=== PATIENT | female | born 1955 | race Caucasian/White ===

== ENCOUNTER → 2017-07-16 | Outpatient (CLI) | payer OTHER ==
[~2017-07-16] MED LIST: ACETAMINOPHEN-1 EAC1 PO; BACLOFEN 10MG T10 MG PO; FLEXERIL PO; IBUPROFEN 200200 M1 PO; NAPROSYN500 MG PO; NOVOLOG100 UNIT/1 SUBQ; PREMARIN0.3 MG PO; PROBIOTIC1 EAC1; RESTORIL15 MG PO; ROPINIROLE HCL2 MG PO; VITAMIN D1000 UNI1 PO; ZOCOR20 MG PO; ZOLOFT50 MG PO
== END ==
LOC: CAT 08:23
DX: Z13.6 Encounter for screening for cardiovascular disorders (principal)

== ENCOUNTER → 2017-12-24 | Outpatient (CLI) | payer BC ==
[~2017-12-24] MED LIST changes: +ACYCLOVIR 400400 MG PO; +ESTRADIOL 1 MG T1 M1 PO; +LEVAQUIN 500 M500 M1 PO; +LIPITOR 20 MG T20 M1 PO; +METOPROLOL SUCC25 M1 PO
== END ==
LOC: RAD 02:23
DX: Z12.31 Encounter for screening mammogram for malignant neoplasm of breast (principal)

== ENCOUNTER 2018-02-03 13:24 | Inpatient (IN) | payer BC ==
[2018-02-03] VITALS (13 sets, daily range): BP systolic 93–144; BP diastolic 40–79
[~2018-02-03] VITALS: Ht 162.6 cm; Wt 63.5 kg
--- NOTE | ~2018-02-03 | EKG ---
[address] [employer] [place] [address] ELECTROCARDIOGRAM REPORT Name: SHAMAR RUVALCABA Room #: 236-P ADM IN M.R.#: [id number] Admission: 02/03/18 Attend Phys: Donaldo Lopez MD Discharge: Date of : 51 Report #: [id number] THIS REPORT FOR: //name// [facility] Test Date: 2018-02-03 Test Time: 17:33:51 Pat Name: SHAMAR RUVALCABA Department: Room: 236 P Gender: F Home Supervisor: Verónica PARADA : 1955 Requested By: Donaldo Lopez Order Number: [id number] MD: Cristhian Santana Measurements Intervals [place] Rate: 107 P: 60 NE: 160 QRS: 75 QRSD: 95 T: -1 QT: 316 QTc: 422 Interpretive Statements Sinus tachycardia Nonspecific ST and T wave abnormality Compared to ECG 10/29/1996 20:25:00 Sinus rhythm has replaced atrial flutter Electronically Signed On 02-04-2018 8:00:04 FUEL MANAGER by Cristhian Santana [email or web address] <ELECTRONICALLY SIGNED> By: Cristhian Santana MD, [facility] 02/04/1800 1733 1733 Cristhian Santana MD, [facility] /EPI
--- NOTE | ~2018-02-03 | 2DMMODE ---
[facility] [address] [place] [address] 2 D/M-MODE ECHOCARDIOGRAM Name: JORDONSHAMAR BARR Room #: 236-P ADM IN M.R.#: [id number] Admission: 02/03/18 Attend Phys: Donaldo Lopez, Discharge: Date of : 51 Date of Service: 02/04/18 0953 Report #: [id number] THIS REPORT FOR: //name// APPROVED REPORT Study performed: 02/04/2018 08:57:48 EXAM: Comprehensive 2D, Doppler, and color-flow Echocardiogram Patient Location: ICU Room #: 236 Status: routine BSA: 1.66 HR: 81 bpm BP: 82/47 mmHg Other Information Study Quality: Fair Indications Diabetes Atrial Fibrillation 2D Dimensions RVDd: 32.52 mm LVEF(%): 73.57 (>50%) IVSd: 10.02 (7-11mm) LVOT Diam: 19.58 (18-24mm) LVDd: 42.51 mm PWd: 10.49 (7-11mm) Ascending Ao: 27.13 (22-36mm) LVDs: 24.57 (25-40mm) Aortic Root: 24.94 mm IVC: 19.00 mm [place]'s LVEF: 73.57 % Volumes Left Atrial Volume (Systole) Single Plane 4CH: 25.55 mL Single Plane 2CH: 39.68 mL LA ESV Index: 21.00 mL/m2 Aortic Valve AoV Peak José Miguel.: 1.61 m/s AO Peak Gr.: 10.42 mmHg LVOT Max P.76 mmHg LVOT Max V: 1.30 m/s TAJ Vmax: 2.42 cm2 Mitral Valve E/A Ratio: 1.7 MV Decel. Time: 207.81 ms [facility] [place] [address] 2 D/M-MODE ECHOCARDIOGRAM Name: JORDONSHAMAR SUE Room #: 236-P [facility] IN M.R.#: [id number] Admission: 02/03/18 Attend Phys: Donaldo Lopez, Discharge: Date of : 51 Date of Service: 02/04/18 0953 Report #: [id number] MV E Max José Miguel.: 1.05 m/s MV A José Miguel.: 0.63 m/s MV PHT: 60.27 ms IVRT: 55.36 ms Pulmonary Valve PV Peak José Miguel.: 0.91 m/s PV Peak Gr.: 3.34 mmHg Pulmonary Vein P Vein S: 0.51 m/s P Vein A: 0.24 m/s P Vein D: 0.39 m/s P Vein A Dur.: 96.9 msec P Vein S/D Ratio: 1.31 Left Ventricle The left ventricle is normal size. There is normal LV segmental wall motion. There is normal left ventricular wall thickness. The left ventricular systolic function is normal. The left ventricular ejection fraction is within the normal range. LVEF is 60-65%. Right Ventricle The right ventricle is normal size. The right ventricular systolic function is normal. Atria The left atrium size is normal. The right atrium size is normal. Aortic Valve The aortic valve is normal in structure. No aortic regurgitation is present. There is no aortic valvular stenosis. Mitral Valve The mitral valve is normal in structure. Trace mitral regurgitation. No evidence of mitral valve stenosis. Tricuspid Valve The tricuspid valve is normal in structure. There is no tricuspid valve regurgitation noted. Pulmonic Valve The pulmonary valve is normal in structure. There is no pulmonic valvular regurgitation. Great Vessels The aortic root is normal in size. IVC is normal in size and collapses >50% with inspiration. [facility] [address] [place] [address] 2 D/M-MODE ECHOCARDIOGRAM Name: SHAMAR RUVALCABA Room #: 236-P [facility] IN .R.#: [id number] Admission: 02/03/18 Attend Phys: Donaldo Lopez, Discharge: Date of : 51 Date of Service: 02/04/18 0953 Report #: [id number] Pericardium There is no pericardial effusion. <Conclusion> The left ventricle is normal size. There is normal left ventricular wall thickness. The left ventricular systolic function is normal. The right ventricle is normal size. The left atrium size is normal. The aortic valve is normal in structure. Trace mitral regurgitation. There is no pericardial effusion. <ELECTRONICALLY SIGNED> By: Burke Bashir MD 02/04/18952 2 2 Burke Bashir MD /INF
--- NOTE | ~2018-02-03 | EKG ---
[place] [address] [facility] [place] [address] ELECTROCARDIOGRAM REPORT Name: SHAMAR RUVALCABA Room #: 236-P ADM IN M.R.#: [id number] Admission: 02/03/18 Attend Phys: Donaldo Lopez MD Discharge: Date of : 51 Report #: [id number] THIS REPORT FOR: //name// [facility] ED Test Date: 2018-02-03 Test Time: 13:37:57 Pat Name: SHAMAR RUVALCABA Department: Room: 236 Gender: F Fur Buyer: AFSHAN : 1955 Requested By: Monique Claudio Order Number: [id number] MD: Cristhian Santana Measurements Intervals [place] Rate: 160 P: AR: QRS: 58 QRSD: 94 T: -75 QT: 263 QTc: 429 Interpretive Statements Atrial flutter with rapid ventricular response Borderline low voltage, extremity leads Repolarization abnormality, prob rate related Compared to ECG 10/29/1996 20:25:00 Atrial flutter has replaced sinus rhythm Electronically Signed On 02-04-2018 7:55:20 NATIONAL SALES REPRESENTATIVE by Cristhian Santana [email or web address] <ELECTRONICALLY SIGNED> By: Cristhian Santana MD, [facility] 02/04/18 0755 1337 1337 Cristhian Santana MD, [facility] /EPI
[~2018-02-03 13:24] MED LIST changes: -ACYCLOVIR 400400 MG PO; -ESTRADIOL 1 MG T1 M1 PO; -LEVAQUIN 500 M500 M1 PO; -LIPITOR 20 MG T20 M1 PO; -METOPROLOL SUCC25 M1 PO
[2018-02-03 13:57] LABS: HEMATOCRIT 47.1 % (37.0-47.0); HEMOGLOBIN 14.4 gm/dL (12.0-15.0); MCHC 30.7 g/dL (28.0-37.0); PLATELET COUNT 441 thou/uL (150-400); RBC 4.66 mil/uL (4.20-5.00); RDW 14.8 % (10.5-14.5); WBC 26.3 thou/uL (4.0-11.0)
[2018-02-03 14:10] LABS: BUN 41 mg/dL (7-18); CALCIUM 9.6 mg/dL (8.5-10.1); CHLORIDE 94 mmol/L (98-107); CREATININE 1.7 mg/dL (0.6-1.0); SODIUM 130 mmol/L (136-145)
[2018-02-03 14:12] LABS: ANION GAP 27 mmol/L (7-16)
[2018-02-03 14:14] LABS: CO2 9 mmol/L (21-32); GLUCOSE 637 mg/dL (74-106); POTASSIUM 6.8 mmol/L (3.5-5.1)
[2018-02-03 14:16] LABS: DIRECT BILIRUBIN < 0.1 mg/dL (<0.1-0.3); LIPASE 65 U/L (73-393); SGOT 23 U/L (15-37); SGPT 27 U/L (30-65); TOTAL BILIRUBIN 0.5 mg/dL (<0.1-1.0); TOTAL PROTEIN 8.3 g/dL (6.4-8.2); TROPONIN-I < 0.04 ng/mL (<0.06)
[2018-02-03 14:23] LABS: ABSOLUTE NEUTROPHILS 22.9 thou/uL (1.4-8.2); MYELOCYTES 1 %
[2018-02-03 14:24] LABS: PLATELET ESTIMATE NORMAL
[2018-02-03 14:46] LABS: URINE BILIRUBIN NEGATIVE (Negative); URINE BLOOD 1+ (Negative); URINE CLARITY CLEAR; URINE COLOR YELLOW; URINE GLUCOSE-RANDOM* 3+ (Negative); URINE KETONES 3+ (Negative); URINE LEUKOCYTES-REFLEX NEGATIVE (Negative); URINE NITRITE-REFLEX NEGATIVE (Negative); URINE PROTEIN (DIPSTICK) NEGATIVE (Negative); URINE SPECIFIC GRAVITY 1.025 (1.005-1.035); URINE UROBILINOGEN 0.2 E.U./dl (0.2-1.0)
[2018-02-03 15:16] LABS: BACTERIA-REFLEX None Seen /HPF (None Seen); CASTS None Seen /LPF (None Seen); CRYSTALS None Seen /LPF (None Seen); SQUAMOUS 0-3 Few /LPF (0-3); URINE RBC None Seen /HPF (0-2); URINE WBC-REFLEX 0-5 Rare /HPF (0-5)
[2018-02-03] MEDS ORDERED: LIPITOR 20 MG T20 M1 PO (15:17)
[2018-02-03] MEDS ORDERED: ESTRADIOL 1 MG T1 M1 PO (15:18)
[2018-02-03 15:48] LABS: BE(vivo) -25.6 mmol/L (-2 to +3); HCO3 4.8 mmol/L (22.0-26.0); PCO2 21.2 mmHg (35.0-45.0); PO2 97.7 mmHg (80.0-100.0); pH 6.975 (7.360-7.450); sO2 93.1 % (92.0-98.0)
[2018-02-03 18:00] LABS: CALCIUM 8.6 mg/dL (8.5-10.1); CREATININE 1.3 mg/dL (0.6-1.0)
[2018-02-03 18:01] LABS: POTASSIUM 5.4 mmol/L (3.5-5.1)
[2018-02-03 18:10] LABS: MAGNESIUM 2.3 mg/dL (1.8-2.4); PHOSPHORUS 5.3 mg/dL (2.5-4.9)
[2018-02-03 18:11] LABS: ALBUMIN 3.6 g/dL (3.4-5.0)
[2018-02-03 21:59] LABS: CALCIUM 7.2 mg/dL (8.5-10.1); CREATININE 1.2 mg/dL (0.6-1.0)
[2018-02-03 22:00] LABS: POTASSIUM 3.7 mmol/L (3.5-5.1)
[2018-02-04] VITALS (15 sets, daily range): BP systolic 87–119; BP diastolic 37–54
[2018-02-04 01:05] LABS: ALBUMIN 2.7 g/dL (3.4-5.0); CREATININE 1.1 mg/dL (0.6-1.0); PHOSPHORUS 1.1 mg/dL (2.5-4.9); POTASSIUM 3.8 mmol/L (3.5-5.1)
[2018-02-04 05:18] LABS: HEMATOCRIT 32.3 % (37.0-47.0); MCH 30.9 pg (26.0-34.0); MCHC 33.1 g/dL (28.0-37.0); RBC 3.47 mil/uL (4.20-5.00); RDW 13.8 % (10.5-14.5); WBC 20.3 thou/uL (4.0-11.0)
[2018-02-04 05:38] LABS: ALBUMIN 2.7 g/dL (3.4-5.0); CALCIUM 6.9 mg/dL (8.5-10.1); CREATININE 0.9 mg/dL (0.6-1.0); MAGNESIUM 2.4 mg/dL (1.8-2.4); PHOSPHORUS 1.1 mg/dL (2.5-4.9); POTASSIUM 4.1 mmol/L (3.5-5.1); TOTAL BILIRUBIN 0.3 mg/dL (<0.1-1.0); TOTAL PROTEIN 5.5 g/dL (6.4-8.2)
[2018-02-04 05:41] LABS: HEMOGLOBIN 10.7 gm/dL (12.0-15.0); MCV 93.2 fL (80.0-100.0)
[2018-02-04 08:08] LABS: ABSOLUTE NEUTROPHILS 18.1 thou/uL (1.4-8.2)
[2018-02-04 08:10] LABS: ANISOCYTOSIS 1+; PLATELET COUNT 280 thou/uL (150-400)
[2018-02-04 09:50] LABS: ALBUMIN 2.7 g/dL (3.4-5.0); CALCIUM 7.1 mg/dL (8.5-10.1); CREATININE 0.8 mg/dL (0.6-1.0); PHOSPHORUS 1.1 mg/dL (2.5-4.9); POTASSIUM 3.7 mmol/L (3.5-5.1)
[2018-02-04 13:57] LABS: ALBUMIN 2.6 g/dL (3.4-5.0); CALCIUM 6.7 mg/dL (8.5-10.1); CREATININE 0.8 mg/dL (0.6-1.0); PHOSPHORUS 2.6 mg/dL (2.5-4.9); POTASSIUM 3.8 mmol/L (3.5-5.1)
[2018-02-04 18:07] LABS: ALBUMIN 2.6 g/dL (3.4-5.0); CALCIUM 6.7 mg/dL (8.5-10.1); CREATININE 0.7 mg/dL (0.6-1.0); PHOSPHORUS 2.6 mg/dL (2.5-4.9); POTASSIUM 3.6 mmol/L (3.5-5.1)
[2018-02-05] VITALS (18 sets, daily range): BP systolic 90–127; BP diastolic 39–62
[2018-02-05 01:55] LABS: URINE BILIRUBIN NEGATIVE (Negative); URINE BLOOD 1+ (Negative); URINE CLARITY CLEAR; URINE COLOR YELLOW; URINE GLUCOSE-RANDOM* NEGATIVE (Negative); URINE KETONES NEGATIVE (Negative); URINE LEUKOCYTES-REFLEX NEGATIVE (Negative); URINE NITRITE-REFLEX NEGATIVE (Negative); URINE PROTEIN (DIPSTICK) NEGATIVE (Negative); URINE SPECIFIC GRAVITY 1.015 (1.005-1.035); URINE UROBILINOGEN 0.2 E.U./dl (0.2-1.0)
[2018-02-05 02:05] LABS: BACTERIA-REFLEX 1-9 Few /HPF (None Seen); CASTS None Seen /LPF (None Seen); CRYSTALS None Seen /LPF (None Seen); MUCUS None Seen strn/LPF (None Seen); SQUAMOUS 0-3 Few /LPF (0-3); URINE RBC 0-2 Rare /HPF (0-2); URINE WBC-REFLEX 0-5 Rare /HPF (0-5)
[2018-02-05 05:41] LABS: HEMATOCRIT 33.3 % (37.0-47.0); HEMOGLOBIN 10.9 gm/dL (12.0-15.0); MCH 30.5 pg (26.0-34.0); MCHC 32.8 g/dL (28.0-37.0); MCV 93.1 fL (80.0-100.0); RBC 3.58 mil/uL (4.20-5.00); RDW 13.7 % (10.5-14.5); WBC 12.6 thou/uL (4.0-11.0)
[2018-02-05 05:47] LABS: ALBUMIN 2.8 g/dL (3.4-5.0); CALCIUM 7.5 mg/dL (8.5-10.1); CREATININE 0.6 mg/dL (0.6-1.0); PHOSPHORUS 2.1 mg/dL (2.5-4.9); POTASSIUM 3.5 mmol/L (3.5-5.1)
[2018-02-06 00:32] VITALS: BP 125/63
[2018-02-06 04:12] VITALS: BP 129/55
[2018-02-06 06:30] LABS: ALBUMIN 2.7 g/dL (3.4-5.0); CALCIUM 7.8 mg/dL (8.5-10.1); CREATININE 0.7 mg/dL (0.6-1.0); POTASSIUM 3.9 mmol/L (3.5-5.1); TOTAL BILIRUBIN 0.4 mg/dL (<0.1-1.0); TOTAL PROTEIN 5.8 g/dL (6.4-8.2)
[2018-02-06 07:40] VITALS: BP 120/64
[2018-02-06 10:53] LABS: HEMATOCRIT 33.2 % (37.0-47.0); HEMOGLOBIN 11.1 gm/dL (12.0-15.0); MCH 30.9 pg (26.0-34.0); MCHC 33.4 g/dL (28.0-37.0); MCV 92.4 fL (80.0-100.0); RBC 3.59 mil/uL (4.20-5.00); RDW 13.9 % (10.5-14.5); WBC 11.5 thou/uL (4.0-11.0)
[2018-02-06 15:45] VITALS: BP 118/65
[2018-02-06 20:18] VITALS: BP 122/68
[2018-02-07 04:14] VITALS: BP 115/61
[2018-02-07 07:53] VITALS: BP 119/55
[2018-02-07] MEDS ORDERED: ACYCLOVIR 400400 MG PO (08:05)
[2018-02-07] MEDS ORDERED: METOPROLOL SUCC25 M1 PO (08:05)
[2018-02-07] MEDS ORDERED: LEVAQUIN 500 M500 M1 PO (08:05)
[2018-02-07 09:58] VITALS: BP 119/55
[2018-02-07 10:52] VITALS: BP 119/55
== END 2018-02-07 10:52 | disposition home or self-care (01) | DRG 871 ==
LOC: ER 13:24 → ICU 14:38 → EROBS 14:38 → ICU 16:21 → 4S 02-05 19:34 → ENTRNSPT 02-07 10:36 → EDTRNSPTSTS 02-07 10:37 → 4S 02-07 10:52
PROVIDERS: Emergency Medicine; Family Medicine
PROC: B24BZZ4 Ultrasonography of Heart with Aorta, Transesophageal (ICD-10-PCS; principal; 2018-02-04)
PROC: 02HV33Z Insertion of Infusion Device into Superior Vena Cava, Percutaneous Approach (ICD-10-PCS; principal; 2018-02-04)
DX: A41.9 Sepsis, unspecified organism (principal); E11.10 Type 2 diabetes mellitus with ketoacidosis without coma; I48.92 Unspecified atrial flutter; N17.9 Acute kidney failure, unspecified; E87.1 Hypo-osmolality and hyponatremia; B00.2 Herpesviral gingivostomatitis and pharyngotonsillitis; E11.65 Type 2 diabetes mellitus with hyperglycemia; E78.00 Pure hypercholesterolemia, unspecified; G25.81 Restless legs syndrome; E05.90 Thyrotoxicosis, unspecified without thyrotoxic crisis or storm; E87.5 Hyperkalemia; I48.91 Unspecified atrial fibrillation; Z87.891 Personal history of nicotine dependence; Z90.710 Acquired absence of both cervix and uterus; Z90.49 Acquired absence of other specified parts of digestive tract; Z79.4 Long term (current) use of insulin; Z91.14 Patient's other noncompliance with medication regimen; Z98.891 History of uterine scar from previous surgery; Z79.899 Other long term (current) drug therapy; Z88.1 Allergy status to other antibiotic agents; Z88.5 Allergy status to narcotic agent; Z88.8 Allergy status to other drugs, medicaments and biological substances; Z82.49 Family history of ischemic heart disease and other diseases of the circulatory system
CPT/HCPCS: 10078; 10102; 27000

== ENCOUNTER → 2018-11-23 | Outpatient (CLI) | payer OTHER ==
[~2018-11-23] MED LIST changes: +ACYCLOVIR 400400 MG PO; +ESTRADIOL 1 MG T1 M1 PO; +LEVAQUIN 500 M500 M1 PO; +LIPITOR 20 MG T20 M1 PO; +METOPROLOL SUCC25 M1 PO
== END ==
LOC: RAD 12:17
DX: M41.86 Other forms of scoliosis, lumbar region (principal); M51.34 Other intervertebral disc degeneration, thoracic region; M50.30 Other cervical disc degeneration, unspecified cervical region

== ENCOUNTER 2018-11-30 09:01 | Emergency (ER) | payer OTHER ==
[~2018-11-30] VITALS: Ht 162.6 cm; Wt 62.1 kg
[2018-11-30 09:45] LABS: URINE CLARITY SL HAZY; URINE COLOR YELLOW; URINE GLUCOSE-RANDOM* 2+ (Negative); URINE KETONES TRACE (Negative); URINE PROTEIN (DIPSTICK) NEGATIVE (Negative); URINE SPECIFIC GRAVITY 1.025 (1.005-1.035)
[2018-11-30 09:46] LABS: URINE BILIRUBIN NEGATIVE (Negative); URINE BLOOD 2+ (Negative); URINE LEUKOCYTES-REFLEX NEGATIVE (Negative); URINE NITRITE-REFLEX NEGATIVE (Negative); URINE UROBILINOGEN 0.2 E.U./dl (0.2-1.0)
[2018-11-30 09:54] LABS: CASTS None Seen /LPF (None Seen); MUCUS 0-3 Light strn/LPF (None Seen); SQUAMOUS 4-10 Moderate /LPF (0-3)
[2018-11-30 09:55] LABS: BACTERIA-REFLEX None Seen /HPF (None Seen); CRYSTALS None Seen /LPF (None Seen); URINE RBC 0-2 Rare /HPF (0-2); URINE WBC-REFLEX 0-5 Rare /HPF (0-5)
[2018-11-30 09:59] LABS: ABSOLUTE NEUTROPHILS 6.8 thou/uL (1.4-8.2); EOSINOPHILS 2.8 % (0.0-3.0); HEMATOCRIT 43.2 % (37.0-47.0); HEMOGLOBIN 14.2 gm/dL (12.0-15.0); MCH 30.3 pg (26.0-34.0); MCHC 32.9 g/dL (28.0-37.0); MONOCYTES 10.6 % (1.0-8.0); PLATELET COUNT 376 thou/uL (150-400); POLYS 73.6 % (36.0-66.0); RDW 13.9 % (10.5-14.5); WBC 9.2 thou/uL (4.0-11.0)
[2018-11-30 10:12] LABS: ANION GAP 8 mmol/L (7-16); BUN 15 mg/dL (7-18); CALCIUM 9.3 mg/dL (8.5-10.1); CHLORIDE 99 mmol/L (98-107); CO2 29 mmol/L (21-32); CREATININE 0.9 mg/dL (0.6-1.0); GLUCOSE 269 mg/dL (74-106); POTASSIUM 4.6 mmol/L (3.5-5.1); SODIUM 136 mmol/L (136-145)
[2018-11-30 10:22] LABS: ALBUMIN 3.7 g/dL (3.4-5.0); LIPASE 100 U/L (73-393); SGOT 14 U/L (15-37); SGPT 18 U/L (30-65); TOTAL BILIRUBIN 0.6 mg/dL (<0.1-1.0); TOTAL PROTEIN 8.2 g/dL (6.4-8.2); TROPONIN-I <0.06 ng/mL (<0.06)
[2018-11-30] MEDS ORDERED: FLAGYL500 M1 PO (11:04)
[2018-11-30] MEDS ORDERED: ZOFRAN ODT4 MG PO (11:04)
[2018-11-30] MEDS ORDERED: CIPRO500 MG PO (11:04)
[2018-11-30] MEDS ORDERED: NORCO 5-325 TA1 EACH PO (11:04)
[2018-11-30 13:05] VITALS: BP 123/48
--- NOTE | 2018-11-30 13:20 | EKG ---
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: RENU : 1955 Requested By: Helga Groves Order Number: [id number] MD: Chidi Nunez Measurements Intervals [place] Rate: 71 P: 69 LA: 161 QRS: 58 QRSD: 98 T: 35 QT: 381 QTc: 414 Interpretive Statements Sinus rhythm Borderline low voltage, extremity leads Compared to ECG 02/03/2018 17:33:51 Sinus tachycardia no longer present ST (T wave) deviation no longer present Electronically Signed On 11-30-2018 13:19:49 DIRECTOR OF PURCHASING by Chidi Nunez [email or web address] <ELECTRONICALLY SIGNED> By: Chidi Nunez MD 11/30/18 1319 3 3 Chidi Nunez MD /[place]OMA
== END 2018-11-30 12:00 | disposition home or self-care (01) ==
LOC: ER 09:01
PROVIDERS: Nurse Practitioner Family
DX: K57.32 Diverticulitis of large intestine without perforation or abscess without bleeding (principal); E11.9 Type 2 diabetes mellitus without complications; Z90.710 Acquired absence of both cervix and uterus; Z87.891 Personal history of nicotine dependence; Z88.1 Allergy status to other antibiotic agents; Z88.5 Allergy status to narcotic agent

== ENCOUNTER → 2019-02-10 | Outpatient (CLI) | payer OTHER ==
[~2019-02-10] VITALS: Ht 162.6 cm; Wt 65.8 kg
[~2019-02-10] MED LIST changes: +CIPRO500 MG PO; +FLAGYL500 M1 PO; +NORCO 5-325 TA1 EACH PO; +PHENERGAN12.5 M2 RECTAL; +PREDNISONE 10 M10 MG PO; +PROPRANOLOL 1010 MG PO; +ZANAFLEX4 MG PO; +ZOFRAN ODT4 MG PO
[2019-02-10 09:18] VITALS: BP 146/68
--- NOTE | 2019-02-10 10:22 | NUR ---
Pain Clinic Assessment: 1. History of Osteoarthritis: SCOLIOSIS History of Rheumatoid Arthritis: 2. Height: 5 ft. 4 in. 162.6 cm. Weight: 145.0 lb. oz. 65.772 kg. Patient's BMI: 24.9 3. Vital Signs: BP: 146/68 Pulse: 72 Resp: 18 Temp: 02 Sat: 97 ECG Mon: 4. Pain Intensity: 9 5. Fall Risk: Dizziness: Y Needs help standing or walking: Y Fallen in the last 3 months: N Fall risk comments: WALKER AT TIMES 6. Patient on Blood Thinner: None 7. History of Hypertension: Y 8. Opioid Therapy greater than 6 weeks: N Opiate Contract Signed: 9. Risk Assessment Tool Provided: 10. Functional Assessment Tool: 64/ 11. Recreational Drug Use: Never Drug Type: Tobacco Use: Former Smoker Tobacco Type: Amount or Packs/day: How Many Years: Alcohol Use: Yes Frequency: Weekly Quant: 4
== END | disposition home or self-care (01) ==
LOC: PAIN 06:48
DX: M54.16 Radiculopathy, lumbar region (principal); G89.29 Other chronic pain; E11.9 Type 2 diabetes mellitus without complications; I48.92 Unspecified atrial flutter; E05.90 Thyrotoxicosis, unspecified without thyrotoxic crisis or storm; Z79.4 Long term (current) use of insulin; Z90.710 Acquired absence of both cervix and uterus; Z98.890 Other specified postprocedural states; Z87.19 Personal history of other diseases of the digestive system; Z79.899 Other long term (current) drug therapy; Z79.01 Long term (current) use of anticoagulants; Z88.0 Allergy status to penicillin; Z88.8 Allergy status to other drugs, medicaments and biological substances

== ENCOUNTER 2019-03-15 16:52 | Inpatient (IN) | payer OTHER ==
[~2019-03-15] VITALS: Ht 162.6 cm; Wt 64.6 kg
[2019-03-15 17:07] VITALS: BP 142/75
[2019-03-15 17:23] LABS: URINE BLOOD 2+ (Negative); URINE CLARITY CLEAR; URINE COLOR YELLOW; URINE GLUCOSE-RANDOM* TRACE (Negative); URINE KETONES NEGATIVE (Negative); URINE LEUKOCYTES-REFLEX NEGATIVE (Negative); URINE NITRITE-REFLEX NEGATIVE (Negative); URINE PROTEIN (DIPSTICK) TRACE (Negative); URINE SPECIFIC GRAVITY <= 1.005 (1.005-1.035); URINE UROBILINOGEN 0.2 E.U./dl (0.2-1.0)
[2019-03-15 17:23] LABS: ABSOLUTE NEUTROPHILS 4.1 thou/uL (1.4-8.2); BASOPHILS 1.2 % (0.0-2.0); EOSINOPHILS 3.2 % (0.0-3.0); HEMATOCRIT 39.8 % (37.0-47.0); HEMOGLOBIN 13.4 gm/dL (12.0-15.0); LYMPHOCYTES 20.5 % (24.0-44.0); MCHC 33.7 g/dL (28.0-37.0); MONOCYTES 9.4 % (1.0-8.0); PLATELET COUNT 492 thou/uL (150-400); POLYS 65.7 % (36.0-66.0); RBC 4.48 mil/uL (4.20-5.00); RDW 13.2 % (10.5-14.5); WBC 6.2 thou/uL (4.0-11.0)
[2019-03-15 17:25] LABS: ICTOTEST (BILI CONFIRMATORY) Negative (Negative); URINE BILIRUBIN NEGATIVE (Negative)
[2019-03-15 17:33] LABS: CALCIUM 9.9 mg/dL (8.5-10.1); CREATININE 0.8 mg/dL (0.6-1.0); POTASSIUM 3.7 mmol/L (3.5-5.1)
[2019-03-15 17:37] LABS: BACTERIA-REFLEX 1-9 Few /HPF (None Seen); CASTS None Seen /LPF (None Seen); CRYSTALS None Seen /LPF (None Seen); SQUAMOUS 4-10 Moderate /LPF (0-3); URINE RBC 3-10 Few /HPF (0-2); URINE WBC-REFLEX 0-5 Rare /HPF (0-5)
[2019-03-15 17:39] LABS: ALBUMIN 3.4 g/dL (3.4-5.0); TOTAL BILIRUBIN 0.2 mg/dL (<0.1-1.0); TOTAL PROTEIN 7.9 g/dL (6.4-8.2)
[2019-03-15 20:15] VITALS: BP 126/97
[2019-03-15 21:01] VITALS: BP 128/54
[2019-03-15 21:30] VITALS: BP 120/54
--- NOTE | 2019-03-16 02:12 | NUR ---
Pt came up to unit from ER approx 2100. Alert and oriented x4. Dr Lopez notified that pt is here and new orders noted. Prn anti-emetic med and pain med administered. IVF started. Pt NPO. Pt has insulin pump. Admission completed. Pt states she would like to sleep and rest. Call light within reach. Will continue to monitor.
[2019-03-16 03:30] VITALS: BP 131/57
[2019-03-16 07:22] VITALS: BP 124/65
--- NOTE | 2019-03-16 13:12 | NUR ---
ASSESSMENT-PT LIVES AT HOME WITH HER . SHE IS INDEPENDENT OF ADLS AND AMBULATION. SPOUSE ABLE TO ASSIST AT HOME WELL. THEY SHARE THE HOUSEHOLD DUTIES. PT VOICE NO CONCERNS RELATED TO DC. FOLLOWING TO ASSIST WITH DC PLANNING.
[2019-03-16 16:21] VITALS: BP 122/55
--- NOTE | 2019-03-16 17:51 | NUR ---
PT ASSESSED AT START OF SHIFT. ABD PAIN GONE. HAD SEVERE NAUSEA THIS AM UNRELIEVED BY ZOFRA SO CHANGED TO COMPAZINE AND HAD RELIEF. HEADACHE THIS AM AND GONE NOW. GI CONSULT. PT STARTED ON CLEARS AND TOLERATING WELL. NO FUTHER NAUSEA.
[2019-03-16 20:45] VITALS: BP 145/49
--- NOTE | 2019-03-17 05:23 | NUR ---
ASSUMED CARE AT 1900, ASSESSMENT COMPLETED. PT REPORTS ABD PAIN IS MOSTLY GONE. C/O NAUSEA ONCE IN THE EVENING, GIVEN COMPAZINE FOR RELIEF, AND HAS DENIED NAUSEA THE REST OF THE NIGHT. IS ABLE TO TAKE CLEAR LIQUIDS, BUT REPORTS FEELING FULL WITH MUCH INTAKE SO SHE IS PRIMARILY TAKING ICE CHIPS ONLY. UP AD ALVARADO IN THE ROOM, STEADY ON FEET, IV FLUIDS INFUSING. NO OTHER CONCERNS, LIKELY D/C TODAY, WILL CONTINUE TO MONITOR.
[2019-03-17 05:30] VITALS: BP 114/57
[2019-03-17 08:20] VITALS: BP 124/58
--- NOTE | 2019-03-17 11:05 | NUR ---
ASSUMED CARE OF PT AT 0700. ASSESSMENT CHARTED. A&O,X4. DENIES ABD PAIN OR NAUSEA. TOLERATING CLEARS DIET, ADVANCED TO SOFT/BLAND DIET PER GI FOR LUNCH TODAY. ACHS, TYPE 1 DM. SKIN INTACT. AT BEDSIDE. C/O RESTLESS LEG SYNDROME NUMBNESS/TINGLING, PAIN MEDS GIVEN ORDERED. POSSIBLE D/C HOME LATER TODAY. WILL CONTINUE TO MONITOR.
[2019-03-17 15:45] VITALS: BP 106/66
[2019-03-17] MEDS ORDERED: AUGMENTIN 875-1 EACH PO (16:28)
[2019-03-17] MEDS ORDERED: FLAGYL500 M1 PO (16:29)
[2019-03-17 16:33] VITALS: BP 106/66
== END 2019-03-17 17:58 | disposition home or self-care (01) | DRG 392 ==
LOC: ER 16:52 → EROBS 17:40 → 4E 17:40
PROVIDERS: Emergency Medicine; ADMIT Family Medicine
DX: K57.20 Diverticulitis of large intestine with perforation and abscess without bleeding (principal); R19.00 Intra-abdominal and pelvic swelling, mass and lump, unspecified site; K42.9 Umbilical hernia without obstruction or gangrene; F17.210 Nicotine dependence, cigarettes, uncomplicated; E78.5 Hyperlipidemia, unspecified; E11.9 Type 2 diabetes mellitus without complications; Z90.710 Acquired absence of both cervix and uterus; Z88.6 Allergy status to analgesic agent; Z88.1 Allergy status to other antibiotic agents; Z88.8 Allergy status to other drugs, medicaments and biological substances; Z82.49 Family history of ischemic heart disease and other diseases of the circulatory system; Z86.010 Personal history of colon polyps
CPT/HCPCS: 10084

== ENCOUNTER 2019-03-21 16:11 | Emergency (ER) | payer OTHER ==
[~2019-03-21] VITALS: Ht 162.6 cm; Wt 60.8 kg
[~2019-03-21 16:11] MED LIST changes: +AUGMENTIN 875-1 EACH PO
[2019-03-21 16:43] LABS: URINE BILIRUBIN 2+ (Negative); URINE BLOOD 2+ (Negative); URINE COLOR YELLOW; URINE GLUCOSE-RANDOM* 1+ (Negative); URINE KETONES 3+ (Negative); URINE LEUKOCYTES-REFLEX TRACE (Negative); URINE NITRITE-REFLEX NEGATIVE (Negative); URINE PROTEIN (DIPSTICK) TRACE (Negative); URINE SPECIFIC GRAVITY >= 1.030 (1.005-1.035); URINE UROBILINOGEN 0.2 E.U./dl (0.2-1.0)
[2019-03-21 16:48] LABS: URINE CLARITY HAZY
[2019-03-21 16:50] LABS: BACTERIA-REFLEX None Seen /HPF (None Seen); CRYSTALS None Seen /LPF (None Seen); SQUAMOUS >10 Many /LPF (0-3); URINE RBC 0-2 Rare /HPF (0-2); URINE WBC-REFLEX 0-5 Rare /HPF (0-5)
[2019-03-21 16:53] LABS: ABSOLUTE NEUTROPHILS 7.3 thou/uL (1.4-8.2); BASOPHILS 0.9 % (0.0-2.0); EOSINOPHILS 0.7 % (0.0-3.0); HEMATOCRIT 42.5 % (37.0-47.0); HEMOGLOBIN 14.4 gm/dL (12.0-15.0); LYMPHOCYTES 13.6 % (24.0-44.0); MCH 30.2 pg (26.0-34.0); MCHC 33.8 g/dL (28.0-37.0); MCV 89.2 fL (80.0-100.0); MONOCYTES 8.3 % (1.0-8.0); POLYS 76.5 % (36.0-66.0); RBC 4.76 mil/uL (4.20-5.00); RDW 13.8 % (10.5-14.5); WBC 10.2 thou/uL (4.0-11.0)
[2019-03-21 17:01] LABS: PLATELET COUNT 332 thou/uL (150-400)
[2019-03-21 17:04] LABS: CALCIUM 9.7 mg/dL (8.5-10.1); CREATININE 0.7 mg/dL (0.6-1.0); POTASSIUM 3.8 mmol/L (3.5-5.1)
[2019-03-21 17:11] LABS: ALBUMIN 3.7 g/dL (3.4-5.0); TOTAL BILIRUBIN 0.4 mg/dL (<0.1-1.0); TOTAL PROTEIN 7.9 g/dL (6.4-8.2)
[2019-03-21] MEDS ORDERED: PHENERGAN 25 MG25 M1 PO (18:27)
[2019-03-21] MEDS ORDERED: COMPAZINE10 MG PO (18:27)
[2019-03-21 18:44] VITALS: BP 125/75
== END 2019-03-21 18:45 | disposition home or self-care (01) ==
LOC: ER 16:11
PROVIDERS: Physician Assistant
DX: K57.32 Diverticulitis of large intestine without perforation or abscess without bleeding (principal); R11.2 Nausea with vomiting, unspecified; Z87.891 Personal history of nicotine dependence; Z88.1 Allergy status to other antibiotic agents; Z88.8 Allergy status to other drugs, medicaments and biological substances; Z88.5 Allergy status to narcotic agent; Z98.890 Other specified postprocedural states; Z90.710 Acquired absence of both cervix and uterus

== ENCOUNTER 2019-05-23 05:27 | Inpatient (IN) | payer OTHER ==
[~2019-05-23] VITALS: Ht 162.6 cm; Wt 66.2 kg
[~2019-05-23 05:27] MED LIST changes: +ASPIR 8181 M1 PO; +COMPAZINE10 MG PO; +PHENERGAN 25 MG25 M1 PO; +PROBIOTIC1 EAC1 PO
[2019-05-23 06:38] LABS: HEMATOCRIT 41.3 % (37.0-47.0); HEMOGLOBIN 13.8 gm/dL (12.0-15.0)
[2019-05-23 07:15] VITALS: BP 124/51
[2019-05-23 12:30] VITALS: BP 128/68
[2019-05-23 13:00] VITALS: BP 115/45
--- NOTE | 2019-05-23 19:24 | NUR ---
PATIENT ARRIVED POST OP FOR SIGMOID COLON RESECTION WITH DR JERNIGAN. A/OX4, PAIN MANAGED WITH MEDICATIONS, BED ALLARM IN PLACE FOR DROWSINESS AND PAIN MEDS. [address] WITH DERMABOND. FLUIDS STARTED PER ORDERS. AKINS IN PLACE. LAST BM WAS TODAY. ADMISSSION ASSESMENT COMPLETE. CALL LIGHT IN REACH.
[2019-05-23 20:18] VITALS: BP 103/58
[2019-05-24 00:33] VITALS: BP 113/57
[2019-05-24 04:42] LABS: HEMATOCRIT 31.9 % (37.0-47.0); MCH 30.3 pg (26.0-34.0); MCHC 33.2 g/dL (28.0-37.0); MCV 91.4 fL (80.0-100.0); RBC 3.49 mil/uL (4.20-5.00); RDW 14.4 % (10.5-14.5); WBC 8.7 thou/uL (4.0-11.0)
[2019-05-24 04:48] LABS: CALCIUM 7.4 mg/dL (8.5-10.1); CREATININE 0.6 mg/dL (0.6-1.0); HEMOGLOBIN 10.6 gm/dL (12.0-15.0); POTASSIUM 3.8 mmol/L (3.5-5.1)
[2019-05-24 05:10] VITALS: BP 94/49
--- NOTE | 2019-05-24 07:34 | NUR ---
progress pt pain controlled with iv pain meds zofran given x 2 for slight nausea, butts intact draining large amounts of urine, ivf's infusing as ordered tolerating clear liquids continue poc.
[2019-05-24 07:55] VITALS: BP 101/52
--- NOTE | 2019-05-24 11:57 | NUR ---
Nutrition: pt risked for wt loss and decreased appetite in nsg assessment. However, pt wt during February admit for diverticular abcess was noted at 142 lb w/ pt stating desire for wt loss, currently 146 lb. Wt is WNL. No albumin. IVF and and other meds reivewed. Pt is s/p lap sigmoid resection yesterday, currently on clear liquid. Assessed at low-mild nutrition risk, rec diet to advance as medically appropriate.
--- NOTE | 2019-05-24 12:13 | NUR ---
Chart reviewed and case discussed with the care team. Pt is s/p sigmoid colectomy.She is progressing and will likely need outpt f/u at dc. She was indep prior to admission and lives with her spouse. The pt has insurance in place and her pcp is Dr. Lopez. No cm interventions indicated at this time.Will remain available should dc needs arise.
[2019-05-24 14:18] VITALS: BP 112/49
--- NOTE | 2019-05-24 14:19 | NUR ---
A/OX4, PAIN AND NAUSEA MANAGED WITH MEDICATIONS. WHILE OT EVALUATED PT THIS MORNING PT BACK NAUSIOUS/VOMITED AND DIZZY. UP TO CHAIR FOR 30 MINUTES. AKINS REMAINS PATENT. BLOODY LIQUID FORM BOWELS ONCE THIS MORNING. CONTINUES ON CLD. PT MANAGAING HER BLOOD SUGARS WITH HER OWN INSULIN PUMP. FALL PRECATIONS IN PLACE AT THIS TIME. FAMILY BEDSIDE. CALL LIGHT IN REACH
[2019-05-24 19:22] VITALS: BP 111/57
[2019-05-25 02:59] VITALS: BP 126/49
[2019-05-25 04:43] LABS: CREATININE 0.7 mg/dL (0.6-1.0); POTASSIUM 3.7 mmol/L (3.5-5.1)
[2019-05-25 04:58] LABS: HEMATOCRIT 32.8 % (37.0-47.0); MCH 30.4 pg (26.0-34.0); MCHC 33.4 g/dL (28.0-37.0); PLATELET COUNT 328 thou/uL (150-400); RBC 3.61 mil/uL (4.20-5.00); RDW 14.3 % (10.5-14.5)
[2019-05-25 06:18] LABS: ABSOLUTE NEUTROPHILS 4.2 thou/uL (1.4-8.2)
[2019-05-25 06:19] LABS: ANISOCYTOSIS 1+; PLATELET ESTIMATE NORMAL; POIKILOCYTOSIS 1+
--- NOTE | 2019-05-25 07:30 | NUR ---
ASSUMED CARE AROUND 1900. LAP SITES CDI. PAIN AND NAUSEA TX PER MD ORDER. VOIDED WELL TO TOILET SEVERAL TIMES OVER NIGHT. NO S/S ACUTE DISTRESS NOTED OR REPORTED AT THIS TIME.
[2019-05-25 08:00] VITALS: BP 136/55
--- NOTE | 2019-05-25 10:22 | O ---
[facility] [place] [address] OPERATIVE REPORT Name: SHAMAR RUVALCABA Room #: 461-P ADM IN M.R.#: [id number] Admission: 05/23/19 ������������������ Attend Phys: Patricia Gay MD, Discharge: ������������������ Date of : 51 Report #: [id number] THIS REPORT FOR: //name// CC: Patricia Lopez DATE OF SERVICE: 05/23/2019 PREOPERATIVE DIAGNOSIS: Chronic recurrent sigmoid diverticulitis. POSTOPERATIVE DIAGNOSIS: Chronic recurrent sigmoid diverticulitis. PROCEDURES PERFORMED: 1. Laparoscopic sigmoid colectomy with stapled colorectal anastomosis. 2. Laparoscopic mobilization of splenic flexure. 3. Rigid proctoscopy. SURGEON: Patricia Gay MD HAND II TUBE BENDER: Best Mckeon DO ANESTHESIA: General endotracheal anesthesia. ESTIMATED BLOOD LOSS: Minimal (less than 10 mL). COMPLICATIONS: None appreciated. SPECIMENS: Sigmoid colon with the open end being proximal. INDICATIONS: The patient is a 63-year-old female who has been admitted on several occasions for chronic recurrent sigmoid diverticulitis. The patient had questionable abscess on her recent CT scan, although this was suspected to be redundant sigmoid colon. She underwent a preoperative colonoscopy showing a few small polyps and diverticula, but no other pathologic findings were identified. As she has been infection free for quite some time, indication was for the above-mentioned procedures today. DESCRIPTION OF PROCEDURE: After explaining the risks, benefits and alternatives of the procedure with the patient in detail in the preoperative holding area and obtaining written consent, the patient was brought to the operating room and placed supine on the operating room table. After conducting a thorough timeout procedure verifying correct patient and procedure, the patient was given general endotracheal anesthesia. Once adequate anesthesia was obtained, her SCDs were hooked up to pneumatic compression device and she was given a preoperative dose of antibiotics in line with the SCIP protocol. The patient's abdomen was then prepped and draped in a standard surgical sterile fashion after positioning her [address] [address] OPERATIVE REPORT Name: SHAMAR RUVALCABA Room #: 461-P [facility] IN M.R.#: [id number] Admission: 05/23/19 ������������������ Attend Phys: Patricia Gay MD, Discharge: ������������������ Date of : 51 Report #: [id number] in the low lithotomy position with her legs in the Yellofin stirrups. A 5 mL of 0.5% Marcaine with epinephrine were used to anesthetize the skin 2 cm cephalad to the umbilicus and 2 cm to the patient's right. A #15 bladed scalpel was used to create a small skin priti at this location. A 5 mm Visiport was placed over 0 degree 5 mm laparoscope and was introduced through this incision site. Once intra-abdominal placement was verified visually, the obturator for the trocar and laparoscope were both removed and the abdomen was insufflated to 15 mmHg using carbon dioxide gas. The laparoscope was changed to a 5-mm 30-degree laparoscope, which was reintroduced through this trocar. The entire abdomen was evaluated to ensure no injury upon entry. We immediately identified a gnarled up, scarred in sigmoid colon that appeared chronically inflamed. I then placed an additional 5 mm trocar in the left mid abdomen approximately 7 cm to the left of the initially placed trocar and an additional 12 mm port in the right lower quadrant. Both additional trocars were placed under direct vision after anesthetizing the skin at each location with 5 mL of 0.5% Marcaine with epinephrine, and I had created appropriately sized skin nicks using #15 bladed scalpel. The patient was now placed in Trendelenburg with left side elevated and I proceeded to dissect the colon free from the pelvic side wall. This was done using the articulating EnSeal advanced energy device. Ultimately, I was able to chisel the colon free off the pelvic side wall and mobilize along the white line of Toldt. There was a redundant sigmoid, although it was normal depth and scarred down substantially to itself. Ultimately, I was able to elevate this into the cephalad position and identify the rectosigmoid juncture, which appeared clean and healthy. A window was made in the mesentery at this juncture using the EnSeal device and the [place] 60 mm stapler with a blue load was entered into the abdomen through the 12 mm port whereby one blade of the stapler was passed through the window in the mesentery and the stapler was clamped and fired completely transecting the colon at the healthy rectosigmoid juncture. The proximal staple line was then elevated and I proceeded to take down the mesentery in a retrograde fashion using the articulating EnSeal device for hemostasis. Once I arrived proximal to the chronically inflamed area where the descending colon was healthy, evaluation at this juncture to see if this would reach without tension showed that it would be under slight tension. As such, I performed a laparoscopic mobilization of splenic flexure using the articulating EnSeal device to come all the way up around the splenic flexure of the colon, staying well away from the wall of the colon at all times to prevent injury from thermal spread. Now that I had mobilized the splenic flexure, I had plenty of colon to reach down to the rectal stump without tension. An appropriate site was located in the suprapubic location and a 4 cm transverse skin incision was made using #15 bladed scalpel. Electrocautery was used to carry this down through skin and fascia was opened transversely. The rectus muscles were spread laterally and I entered into the abdomen with electrocautery. The Aren wound protector was then placed and the diseased colon was delivered through the wound protector and elevated. The auto pursestring suture device was then fired along the colon where it was healthy and curved Boston scissors were used to resect the diseased segment of sigmoid [address] [address] OPERATIVE REPORT Name: SHAMAR RUVALCABA Room #: 461-P ADM IN M.R.#: [id number] Admission: 05/23/19 ������������������ Attend Phys: Patricia Gay MD, Discharge: ������������������ Date of : 51 Report #: [id number] colon. This was passed off the field as specimen with the open end marking the proximal margin. The auto pursestring suture device was now removed and 3 Allis clamps were used in a triangular fashion to hold open the end of bowel. This was then sized using the EEA sizers and as it was quite diminutive, it would only handle a 25 EEA. The anvil for the 25 EEA was then placed in the open end of bowel and the suture from the auto pursestring suture device was tied down around it. The colon was cleaned off to ensure no excessive epiploic or fat was present on the end of the colon and it was placed back in the abdomen. The cap was placed on the Aren retractor and the abdomen was reinsufflated. The rectal stump was now dilated with a 25 EEA as well as a 28 EEA dilator. As we had used the 25 EEA anvil, the 25 EEA stapler was now delivered into the distal aspect of the rectal stump where the spike was delivered. The spike was then mated to the anvil and was ratcheted down ensuring no twisting to the colon. Once appropriate, the stapler was fired and removed showing two complete beefy anastomotic donuts. The bowel was then clamped proximal to the anastomosis and the pelvis was filled with normal saline and I performed rigid proctoscopy to insufflate the colon across the anastomosis. We had excellent tidaling and distention of the colon with no evidence of bubbling in the normal saline in the pelvis, thereby signifying a negative leak test. The rigid proctoscope was removed, passed off the field and I sterilely reentered the operative field once again. All normal saline was suctioned out of the pelvis and it ran clear without bleeding. 20 mL of Tisseel was now used to coat the entirety of the anastomotic staple line circumferentially as well as having sprayed some of it on the bladder to ensure no chance for fistulization. The omentum was then placed over top of the anastomosis between the bowel and the bladder once the patient was taken out of Trendelenburg to assist with prevention of fistula formation as well. The 12 mm port was now removed and the fascia was closed using 0 PDS suture on the Anmol-Viviane suture passer device under direct vision. This was tied down under direct vision. I then removed the Aren retractor and the abdomen was fully desufflated. All trocars removed under direct vision. I closed the peritoneum using 3-0 PDS in standard running fashion. I then closed the transverse fascial incision using a #1 PDS suture in standard running fashion as well. A 4-0 Monocryl was used in standard subcuticular fashion for all skin incisions and Dermabond glue was applied to all skin wounds. At the end of the procedure, all instrument, needle and sponge counts were correct. The patient tolerated the procedure without incident, was awakened in the operating room and transitioned to the recovery room in stable condition with no apparent complications. ��������������������������������������������� <ELECTRONICALLY SIGNED> ���������������������������������������� By: Patricia Gay MD, FACS ��������������������������������������������� 05/25/19 1022 [id number] [id number] Patricia Gay MD, FACS /nt
--- NOTE | 2019-05-25 15:00 | NUR ---
VITAL SIGNS STABLE THROUGHOUT SHIFT. PT APPEARS BETTER TODAY, NAUSEA IS MORE CONTROLLED PT IS RECEIVING ANTI NAUSEA MEDICATION REGULARLY. DIET ADVANCED TO FULL LIQUIDS, PT TOLERATING ALTHOUGH VERY LITTLE APPETITE. PT SWITCHED TO P.O. PAIN MEDS WHICH SHE HAS ALSO TOLERATED WELL. PT HAS BEEN AMBULATING AROUND UNIT THROUGHOUT DAY WITH SPOUSE OR STAFF. POSSIBLE DC TOMORROW.
--- NOTE | 2019-05-25 16:06 | PATH ---
[facility] [address] [place] [address] PATHOLOGY RPT PROCEDURE Name: SHAMAR SHELDON Room #: 461-P ADM IN M.R.#: [id number] ������������������ Admission: 05/23/19 ������������������ Date of : 51 Discharge: Report #: [id number] Path Case #: [id number] [facility] Accession Number: [id number] . 01 Material submitted: . colon - SIGMOID COLON . 01 Clinical history: . Sigmoid diverticulitis . 02 Diagnosis: Large intestine, sigmoid, laparoscopic sigmoid resection: - Acute and chronic diverticulitis. - Background of diverticulosis. - Margins of resection unremarkable. - Reactive lymph node. . (IUV:mml; 05/25/2019) QLM/05/25/2019 . 02 Electronically signed: . Ira Fuller MD, Pathologist NPI- [id number] . 01 Gross description: . The specimen is received in formalin, labeled "Shamar Sheldon, sigmoid colon" and consists of a segment of large colon measuring 13.0 cm in length and up to 3.0 cm in diameter with pericolic tissue measuring 6.0 cm thick. One margin is open while the other is closed with kendrick. The serosa is pink-sanchez with extensive hemorrhage/adhesions at the mid specimen. The specimen is opened revealing a pink-sanchez mucosa with no masses or lesions. Further sectioning reveals a few diverticula measuring up to 1.0 cm which form mucosa lined pouches. No perforations are grossly identified and branch service representative sections are submitted as follows: . A1: Open margin A2: Stapled margin A3-A5: Relay Man diverticula (SDY; 05/23/2019) SYU/SYU . 02 Pathologist provided ICD-10: K57.32, K57.30 . 02 CPT . 594003 Specimen Comment: A courtesy [place] [address] PATHOLOGY RPT PROCEDURE Name: SHAMAR SHELDON Room #: 461-P [facility]#: [id number] ������������������ Admission: 05/23/19 ������������������ Date of : 51 Discharge: Report #: [id number] Path Case #: [id number] Specimen Comment: [phone], , . Specimen Comment: Report sent to ,DR RAMIREZ / DR GREENE Performed at: [address] [facility] [address], [place], [place] [id number] MD Cesar Verdin MD Phone: [phone] Performed at: [address], [place], [place] [id number] MD Ira Fuller MD Phone: [phone]
[2019-05-25 19:56] VITALS: BP 104/48
[2019-05-26 04:43] LABS: CALCIUM 8.5 mg/dL (8.5-10.1); CREATININE 0.6 mg/dL (0.6-1.0); POTASSIUM 3.2 mmol/L (3.5-5.1)
[2019-05-26 05:15] LABS: HEMATOCRIT 31.8 % (37.0-47.0); HEMOGLOBIN 10.7 gm/dL (12.0-15.0); MCH 30.3 pg (26.0-34.0); MCHC 33.7 g/dL (28.0-37.0); MCV 89.9 fL (80.0-100.0); PLATELET COUNT 338 thou/uL (150-400); RBC 3.54 mil/uL (4.20-5.00); RDW 14.2 % (10.5-14.5); WBC 4.7 thou/uL (4.0-11.0)
--- NOTE | 2019-05-26 05:35 | NUR ---
Assumed care at 1845. Pt resting in bed. AOX4. VSS. Up at avni. Gave pain and nausea medication once. Lap sites CDI. Pt should be discharging today. No identified needs at the moment. Call light within reach. Will continue to monitor.
[2019-05-26 05:50] VITALS: BP 110/53
[2019-05-26 05:54] LABS: ABSOLUTE NEUTROPHILS 2.5 thou/uL (1.4-8.2); ANISOCYTOSIS 1+; PLATELET ESTIMATE NORMAL; POIKILOCYTOSIS 1+
[2019-05-26 07:45] VITALS: BP 126/67
[2019-05-26] MEDS ORDERED: HYDROCODON-ACE1 EAC7 PO (13:54)
[2019-05-26 14:27] VITALS: BP 126/67
--- NOTE | 2019-05-26 14:36 | NUR ---
DIS PT IS FOR DC. PT HAD A REGULAR SOFT DIET FOR LUNCH, TOLERATED WELL. PROVIDER AWARE. DC PACKET AND MED SCIPT PROVIDED. IV DC'D.
== END 2019-05-26 15:25 | disposition home or self-care (01) | DRG 331 ==
LOC: 4W 05:27 → TBA 05:27 → OR 11:04 → 4W 12:16 → EDSTATUS 12:43 → PRE 12:48 → 4W 05-26 15:25
PROVIDERS: ADMIT Surgery
PROC: 0DNL4ZZ Release Transverse Colon, Percutaneous Endoscopic Approach (ICD-10-PCS; principal; 2019-05-23)
PROC: 0DTN4ZZ Resection of Sigmoid Colon, Percutaneous Endoscopic Approach (ICD-10-PCS; principal; 2019-05-23)
PROC: 0D7P8ZZ Dilation of Rectum, Via Natural or Artificial Opening Endoscopic (ICD-10-PCS; principal; 2019-05-23)
DX: K57.32 Diverticulitis of large intestine without perforation or abscess without bleeding (principal); E11.9 Type 2 diabetes mellitus without complications; Z79.82 Long term (current) use of aspirin; Z79.899 Other long term (current) drug therapy; Z88.6 Allergy status to analgesic agent; Z88.8 Allergy status to other drugs, medicaments and biological substances
CPT/HCPCS: 10047; 50010; 50101; 50249; 50290; 50386; 50455; 50525; 50555; 50558; 50740; 50804; 51398; 51437; 51489; 52182; 52265; 53307; 54022; 56462; 56525; 56526; 56530; 56753; 57092; 57108; 62110; 62900; 70005

== ENCOUNTER → 2019-06-06 | Outpatient (CLI) | payer OTHER ==
[~2019-06-06] MED LIST changes: +HYDROCODON-ACE1 EAC7 PO
== END ==
LOC: CAT 12:04
DX: R10.30 Lower abdominal pain, unspecified (principal); Z90.49 Acquired absence of other specified parts of digestive tract

== ENCOUNTER → 2019-11-08 | Outpatient (CLI) | payer OTHER | LOC: MRI 13:16 | DX: S46.011A Strain of muscle(s) and tendon(s) of the rotator cuff of right shoulder, initial encounter (principal); M19.011 Primary osteoarthritis, right shoulder; X58.XXXA Exposure to other specified factors, initial encounter; Y93.89 Activity, other specified; Y92.89 Other specified places as the place of occurrence of the external cause; Y99.8 Other external cause status ==

== ENCOUNTER → 2021-09-01 | Outpatient (CLI) | payer OTHER | LOC: SJCVCIMAG 08-29 14:07 | PROVIDERS: ATTEND Internal Medicine Cardiovascular Disease | DX: I25.10 Atherosclerotic heart disease of native coronary artery without angina pectoris (principal); R06.00 Dyspnea, unspecified; E78.00 Pure hypercholesterolemia, unspecified; F41.9 Anxiety disorder, unspecified; E11.9 Type 2 diabetes mellitus without complications; F17.210 Nicotine dependence, cigarettes, uncomplicated; Z82.49 Family history of ischemic heart disease and other diseases of the circulatory system; Z88.1 Allergy status to other antibiotic agents; Z88.8 Allergy status to other drugs, medicaments and biological substances; Z88.5 Allergy status to narcotic agent; Z79.899 Other long term (current) drug therapy ==